=== PATIENT | male | born 1945 | race Caucasian/White ===

== ENCOUNTER 2019-04-30 08:43 | Day surgery (SDC) | payer MEDICARE, BC ==
[~2019-04-30] VITALS: Ht 185.4 cm; Wt 85.4 kg
[~2019-04-30 08:43] MED LIST: ACID1CAP PO; AMLO10TA8 PO; ASPI81TA45 PO; BUPIVACAINE/PF 0.5% ONE; FLUC200T4 PO; MAGN133T3 PO; METH500T98 PEG; MULT1TAB68 PO; MYCO250C PO; OMEG1CAP23 PO; ROSU20TA2 PO; TACR1CAP5 PO; TAMS-11 PO
[2019-04-30] MEDS ORDERED: LACTATED RINGERS 1,000 ML IV SCH (09:04)
[2019-04-30 09:13] VITALS: BP 126/71
[2019-04-30] MEDS ORDERED: FENTANYL PF 250 MCG/5ML ONE (09:17)
[2019-04-30] MEDS ORDERED: GABAPENTIN 300 MG CAPSULE PO ONE (09:30)
[2019-04-30] MEDS ORDERED: ACETAMINOPHEN 500 MG TABLET PO ONE (09:30)
[2019-04-30] MEDS ORDERED: LIDOCAINE-MPF 1%, 2ML INFIL ONE (09:30)
[2019-04-30] MEDS ORDERED: DEXMEDETOMIDINE 200 MCG/2 ML ONE (09:56)
[2019-04-30] MEDS ORDERED: KETOROLAC 30 MG/1 ML ONE (10:03)
[2019-04-30] MEDS ORDERED: PHENYLEPHRINE 10 MG/ML ONE (10:03)
[2019-04-30] MEDS ORDERED: VANCOMYCIN 1,000 MG ONE (10:14)
[2019-04-30] MEDS ORDERED: ALBUTEROL/IPRATROPIUM 2.5MG/0.5MG, 3 ML NPPB PRN (11:00)
[2019-04-30] MEDS ORDERED: hydrALAzine 20 MG/ML, 1ML IV PRN (11:00)
[2019-04-30] MEDS ORDERED: MEPERIDINE/PF 25MG/ML,1ML IVPush PRN (11:00)
[2019-04-30] MEDS ORDERED: HYDROmorphone 2 MG/ML, 1ML IVPush PRN (11:00)
[2019-04-30] MEDS ORDERED: DIAZEPAM 5 MG/ML, 2ML IVPush PRN (11:00)
[2019-04-30] MEDS ORDERED: MIDAZOLAM 1 MG/ML, 2ML IV PRN (11:00)
[2019-04-30] MEDS ORDERED: METOPROLOL 1 MG/ML, 5ML IV PRN (11:00)
[2019-04-30] MEDS ORDERED: OXYcodone 5 MG/5 ML ORAL.SOL UDC PO PRN (11:00)
[2019-04-30] MEDS ORDERED: PROMETHAZINE 25 MG/ML, 1ML IV PRN (11:00)
[2019-04-30] MEDS ORDERED: FENTANYL PF 100 MCG/2ML IV PRN (11:00)
[2019-04-30] MEDS ORDERED: ONDANSETRON 2MG/ML, 2ML ONE (11:02)
[2019-04-30] MEDS ORDERED: CEFAZOLIN 1,000 MG ONE (11:02)
[2019-04-30] MEDS ORDERED: GLYCOPYRROLATE 0.2MG/1ML, 5ML ONE (11:02)
[2019-04-30] MEDS ORDERED: PROPOFOL 10 MG/ML, 20ML ONE (11:02)
[2019-04-30] MEDS ORDERED: NEOSTIGMINE 1 MG/ML, 10ML ONE (11:02)
[2019-04-30] MEDS ORDERED: ROCURONIUM 10MG/ML,5ML ONE (11:02)
[2019-04-30] MEDS ORDERED: DEXAMETHASONE 4 MG/ML, 1ML ONE (11:02)
== END 2019-04-30 22:25 | disposition home or self-care (01) ==
LOC: OUT 08:43 → 4NE 18:05 → OUT 22:25
PROVIDERS: ATTEND Surgery
DX: K40.91 Unilateral inguinal hernia, without obstruction or gangrene, recurrent (principal); K42.0 Umbilical hernia with obstruction, without gangrene; I10 Essential (primary) hypertension; E78.5 Hyperlipidemia, unspecified; N40.0 Benign prostatic hyperplasia without lower urinary tract symptoms; Z79.82 Long term (current) use of aspirin; Z79.899 Other long term (current) drug therapy; Z94.1 Heart transplant status; Z98.890 Other specified postprocedural states
CPT/HCPCS: 36415; 49651; 49653; 64488; 85014; 85018; 93005; C1781; J0690; J1100; J1885; J2370; J2405; J2704; J2710; J3010; J3370; J7120; G0378